=== PATIENT | female | born 1990 | race Caucasian/White ===

== ENCOUNTER → 2018-10-15 | Outpatient (CLI) | payer BC ==
[~2018-10-15] MED LIST: CEP500 PO; IOPAMIDOL 76% 100 ML INFUS BTL 100 ML ONE
--- NOTE | 2018-10-15 19:50 | RADIOLOGY IMAGING REPORT ---
FACILITY: [facility] PATIENT NAME: Ethel Aden : 1990 MR: [id number] V: [id number] EXAM DATE: ORDERING PHYSICIAN: CHOLO GUADALUPE TECHNOLOGIST: Location: [facility] [place] Patient: Ethel Aden : 1990 Visit/Account:[id number] Date of Sevice: 10/15/2018 ADDENDUM #1 ADDENDUM: Contrast dose was 75 mL of IV Isovue-370. Report Dictated By: Selvin Hart MD at 10/15/2018 8:26 PM Report E-Signed By: Selvin Hart MD at 10/15/2018 8:26 PM ORIGINAL REPORT EXAMINATION: CT abdomen with IV contrast CT pelvis with IV contrast HISTORY: Rule out appendicitis. Abdominal pain. COMPARISON: 08/29/2016. TECHNIQUE: Axial images were taken through the abdomen and pelvis with intravenous contrast. Sagitt al and coronal reformatted images are also submitted. CONTRAST: mL of IV Isovue-370 One of the following dose optimization techniques was utilized in the performance of this exam: Autom ated exposure control; adjustment of the mA and/or kV according to the patient's size; or use of an i terative reconstruction technique. Specific details can be referenced in the facility's radiology C T exam operational policy. FINDINGS: Liver/biliary: Negative. Pancreas: Negative. Spleen: Negative. Adrenal glands: Negative. Kidneys: Negative. Pelvic structures: Involuting follicle in the right ovary measuring 1.7 cm. Bowel: The appendix is retrocecal. No evidence of appendicitis. There is mild circumferential wall th ickening of a short segment of small bowel in the midabdomen. No evidence of bowel obstruction. Peritoneum/retroperitoneum/mesenteries: Small volume of intraperitoneal free fluid in the pelvis. No intraperitoneal free air. Vessels: Negative. Musculoskeletal/body wall: Negative. Lymph node assessment: Negative. Lower chest: Negative. IMPRESSION: Normal appendix. No evidence of appendicitis. There is mild segmental wall thickening of a short segment of small bowel in the midabdomen. This is suggestive of an enteritis, probably either infectious or inflammatory. Involuting follicle in the right ovary measuring 1.7 cm. Small volume of free fluid in the pelvis. Report Dictated By: Selvin Hart MD at 10/15/2018 7:28 PM Report E-Signed By: Selvin Hart MD at 10/15/2018 7:47 PM WSN:[id number]
== END ==
LOC: CT 18:07
PROVIDERS: ATTEND Nurse Practitioner Family
DX: R10.9 Unspecified abdominal pain (principal)
CPT/HCPCS: 74177; Q9967

== ENCOUNTER → 2018-10-15 | Outpatient (REF) | payer BC ==
[~2018-10-15] MED LIST changes: -IOPAMIDOL 76% 100 ML INFUS BTL 100 ML ONE
[2018-10-15 11:46] LABS: PLATELET COUNT, AUTOMATED 255 K/uL (150-450)
== END ==
PROVIDERS: ATTEND Nurse Practitioner Family
DX: R10.9 Unspecified abdominal pain (principal)
CPT/HCPCS: 82040; 82150; 82247; 82310; 82374; 82435; 82565; 82947; 83690; 84075; 84132; 84155; 84295; 84450; 84460; 84520; 85025